=== PATIENT | female | born 1985 | race Caucasian/White ===

== ENCOUNTER 2019-05-15 10:04 | Emergency (ER) | payer MEDICAID ==
[~2019-05-15] VITALS: Ht 152.4 cm; Wt 68.0 kg
[2019-05-15 10:07] VITALS: BP 113/64
--- NOTE | 2019-05-15 10:12 | NUR ---
PT TO BED 12 WITH LIMP
--- NOTE | 2019-05-15 10:18 | NUR ---
33 Y/O FEMALE C/O RT FOOT AND ANKLE PAIN S/P SPEAKER FELL ON FOOT YESTERDAY. PT STATES INCREASED PAIN W/ AMBULATION. 8/10 SHARP PAIN AT THIS TIME. +BRUISING AND SWELLING TO RT BIG TOE. CAP REFILL <3 SEC. SKIN WARM AND DRY TO THE TOUCH. LMP 12/15. PT STATE TYLENOL TAKEN AT 0600 WITH NO PAIN RELIEF. RR EVEN AND UNLABORED. PT POSITIONED FOR COMFORT. VSS. MEDHX: DENIES ALLERGIES: NKA
--- NOTE | 2019-05-15 10:21 | NUR ---
XRAY AT BEDSIDE
--- NOTE | 2019-05-15 10:59 | NUR ---
DR CHEW AT BEDSIDE EXAMINING PT.
[2019-05-15] MEDS ORDERED: IBUPROFEN 800 MG TAB PO ONE (11:20)
--- NOTE | 2019-05-15 11:29 | NUR ---
PLACED ORTHO SHOE ON PT'S RIGHT FOOT
--- NOTE | 2019-05-15 11:31 | NUR ---
ORTHO SHOE PLACED ON PTS RT FOOT BY CONRAD ECHAVARRIA. PT EDUCATED ON USE OF BOOT. +CMS AFTER PLACEMENT.
[2019-05-15 11:35] VITALS: BP 113/64
--- NOTE | 2019-05-15 11:35 | NUR ---
Patient discharged with v/s stable. Written and verbal after care instructions given and explained. Patient alert, oriented and verbalized understanding of instructions. Ambulatory with steady gait. All questions addressed prior to discharge. ID band removed. Patient advised to follow up with PMD. Rx of NORCO AND IBURPROFEN given. Patient educated on indication of medication including possible reaction and side effects. Opportunity to ask questions provided and answered. PT PLACED IN ORTHO SHOE
== END 2019-05-15 11:35 | disposition home or self-care (01) ==
LOC: MED 10:04
DX: S92.421A Displaced fracture of distal phalanx of right great toe, initial encounter for closed fracture (principal); W20.8XXA Other cause of strike by thrown, projected or falling object, initial encounter; Y93.89 Activity, other specified; Y92.89 Other specified places as the place of occurrence of the external cause; Y99.8 Other external cause status
CPT/HCPCS: 73610; 73630; 99283; Q0092

== ENCOUNTER 2020-10-20 08:55 | Emergency (ER) | payer MEDICAID ==
[~2020-10-20] VITALS: Ht 152.4 cm; Wt 72.6 kg
--- NOTE | 2020-10-20 09:00 | NUR ---
Ambulated to bed 6
[2020-10-20 09:03] VITALS: BP 108/57
--- NOTE | 2020-10-20 09:10 | NUR ---
PATIENT AMBULATED TO RESTROOM FOR COLLECTION OF URINE
--- NOTE | 2020-10-20 09:12 | NUR ---
34/F presents to ED with c/o left lower back pain. Patient states she has had worsening constant 8/10 sharp left lower back pain for four days. Patient states yesterday she went to get a massage in hopes it would aid the back pain but states she believes it worsened the pain. Patient states she was unable to sleep due to the pain, states she has been taking Tylenol with no relief. Patient able to ambulate with no assistance, denies abdominal pain, denies dysuria or hematuria.
[2020-10-20] MEDS ORDERED: KETOROLAC 60 MG/2 ML VIAL IM ONE (09:45)
--- NOTE | 2020-10-20 10:09 | NUR ---
Labs drawn and walked to lab
[2020-10-20 10:31] LABS: BASOPHILS # (AUTO) 0.1 K/uL (0.00-0.22); BASOPHILS % (AUTO) 2.2 % (0.0-2.0); EOSINOPHILS # (AUTO) 0.1 K/uL (0-0.4); EOSINOPHILS % (AUTO) 2.6 % (0.0-4.0); HEMATOCRIT 39.2 % (36-48); HEMOGLOBIN 13.7 g/dL (12.0-16.0); LYMPHOCYTES # (AUTO) 1.5 K/uL (2.5-16.5); LYMPHOCYTES % (AUTO) 27.5 % (20.5-51.1); MEAN CORPUSCULAR HEMOGLOBIN 32 pg (27-31); MEAN CORPUSCULAR HGB CONC 35 g/dL (33-37); MEAN CORPUSCULAR VOLUME 90.1 fL (80-94); MONOCYTES # (AUTO) 0.3 K/uL (0.8-1.0); MONOCYTES % (AUTO) 5.4 % (1.7-9.3); NEUTROPHILS # (AUTO) 3.3 K/uL (1.8-7.7); NEUTROPHILS % (AUTO) 62.3 % (42.2-75.2); PLATELET COUNT (AUTO) 146 K/uL (140-450); RED BLOOD CELL COUNT(AUTO) 4.36 MIL/uL (4.20-5.40); RED CELL DISTRIBUTION WIDTH 13.6 % (11.6-13.7); WHITE BLOOD COUNT (AUTO) 5.4 K/uL (4.8-10.8)
[2020-10-20 11:08] LABS: ANION GAP 15.3 (8-16); CARBON DIOXIDE 25.7 mmol/L (21-32); CREATININE 0.9 mg/dL (0.6-1.3)
[2020-10-20 11:23] LABS: ALBUMIN 4.3 g/dL (3.4-5.0); TOTAL BILIRUBIN 0.5 mg/dL (0.0-1.0)
[2020-10-20] MEDS ORDERED: NAPR-1704 PO (12:20)
[2020-10-20] MEDS ORDERED: METF500T PO (12:20)
[2020-10-20 12:31] VITALS: BP 113/64
--- NOTE | 2020-10-20 12:31 | NUR ---
Patient discharged with v/s stable. Written and verbal after care instructions given and explained. Patient alert, oriented and verbalized understanding of instructions. Ambulatory with steady gait. All questions addressed prior to discharge. ID band removed. Patient advised to follow up with PMD. Rx of METFORMIN AND NAPROSYN given. Patient educated on indication of medication including possible reaction and side effects. Opportunity to ask questions provided and answered.
== END 2020-10-20 12:31 | disposition home or self-care (01) ==
LOC: MED 08:55
DX: E11.65 Type 2 diabetes mellitus with hyperglycemia (principal); M54.5 Low back pain
CPT/HCPCS: 36415; 80053; 81002; 81025; 82948; 83036; 85025; 96372; 99283; J1885

== ENCOUNTER 2022-08-28 10:36 | Emergency (ER) | payer MEDICAID ==
[~2022-08-28] VITALS: Ht 152.4 cm; Wt 65.8 kg
[~2022-08-28 10:36] MED LIST: METF-346 PO; NAPR-1704 PO
[2022-08-28 10:42] VITALS: BP 100/67
--- NOTE | 2022-08-28 10:50 | NUR ---
AMBULATED TO BED 12
--- NOTE | 2022-08-28 10:59 | NUR ---
ASSUMED PATIENT CARE. NURSING ASSESSMENT COMPLETED.
[2022-08-28 11:08] LABS: APPEARANCE,URINE CLEAR (CLEAR); BILIRUBIN,URINE NEGATIVE (NEGATIVE); BLOOD, URINE NEGATIVE (NEGATIVE); COLOR,URINE YELLOW (YELLOW); LEUKOCYTE ESTERASE ,URINE NEGATIVE (NEGATIVE); NITRITE, URINE NEGATIVE (NEGATIVE); UGLUCOSE NEGATIVE (NEGATIVE)
[2022-08-28] MEDS ORDERED: IBUP-2213 PO (11:26)
[2022-08-28] MEDS ORDERED: LOPE-289 PO (11:26)
[2022-08-28] MEDS ORDERED: ONDA8TAB87 PO (11:26)
[2022-08-28] MEDS ORDERED: CIPR500T4 PO (11:26)
--- NOTE | 2022-08-28 11:51 | NUR ---
Patient discharged with v/s stable. Written and verbal after care instructions FOR N/V/D AND ABD PAIN given and explained. Patient alert, oriented and verbalized understanding of instructions. Ambulatory with steady gait. All questions addressed prior to discharge. ID band removed. Patient advised to follow up with PMD. Rx of CIPRO, IBUPROFEN, IMODIUM AND ZOFRAN given. Opportunity to ask questions provided and answered.
== END 2022-08-28 11:51 | disposition home or self-care (01) ==
LOC: MED 10:36
DX: R10.13 Epigastric pain (principal); R11.2 Nausea with vomiting, unspecified; R19.7 Diarrhea, unspecified
CPT/HCPCS: 81003; 99283

== ENCOUNTER 2022-10-26 10:03 | Emergency (ER) | payer MEDICAID ==
[~2022-10-26] VITALS: Ht 152.4 cm; Wt 68.0 kg
[~2022-10-26 10:03] MED LIST changes: +CIPR500T4 PO; +IBUP-2213 PO; +LOPE-289 PO; +ONDA8TAB87 PO
[2022-10-26 10:10] VITALS: BP 109/64
[2022-10-26] MEDS ORDERED: KETOROLAC 60 MG/2 ML VIAL IM ONE (10:45)
[2022-10-26] MEDS ORDERED: PROCHLORPERAZINE 10 MG/2 ML VIAL IM ONE (10:45)
[2022-10-26 10:54] LABS: BASOPHILS % (AUTO) 0.5 % (0.0-2.0); EOSINOPHILS # (AUTO) 0.1 K/uL (0-0.4); EOSINOPHILS % (AUTO) 1.6 % (0.0-4.0); HEMATOCRIT 37.5 % (36-48); LYMPHOCYTES # (AUTO) 1.7 K/uL (2.5-16.5); MEAN CORPUSCULAR HEMOGLOBIN 31 pg (27-31); MEAN CORPUSCULAR HGB CONC 35 g/dL (33-37); MEAN CORPUSCULAR VOLUME 89.6 fL (80-94); MONOCYTES # (AUTO) 0.4 K/uL (0.8-1.0); MONOCYTES % (AUTO) 5.9 % (1.7-9.3); NEUTROPHILS # (AUTO) 4.1 K/uL (1.8-7.7); PLATELET COUNT (AUTO) 141 K/uL (140-450); RED BLOOD CELL COUNT(AUTO) 4.18 MIL/uL (4.20-5.40); RED CELL DISTRIBUTION WIDTH 13.2 % (11.6-13.7); WHITE BLOOD COUNT (AUTO) 6.3 K/uL (4.8-10.8)
[2022-10-26 11:20] LABS: ALBUMIN 4.1 g/dL (3.4-5.0); ANION GAP 12.6 (8-16); CARBON DIOXIDE 27.4 mmol/L (21-32); CREATININE 0.7 mg/dL (0.6-1.3); TOTAL BILIRUBIN 0.6 mg/dL (0.0-1.0)
--- NOTE | 2022-10-26 12:10 | NUR ---
36 Y/O FEMALE BIB SELF, C/O WORSENING ABD PAIN AND NAUSEA FOR 3 DAYS. PT DENIES VOMITING, DIARRHEA, CONSTIPATION AND FEVERS. PMH: DENIES NKA
[2022-10-26] MEDS ORDERED: TRAM-748 PO (12:12)
[2022-10-26 12:25] VITALS: BP 109/64
--- NOTE | 2022-10-26 12:25 | NUR ---
Patient discharged with v/s stable. Written and verbal after care instructions given and explained. Patient alert, oriented and verbalized understanding of instructions. Ambulatory with steady gait. All questions addressed prior to discharge. ID band removed. Patient advised to follow up with PMD. Rx of TRAMADOL (SENT) given. Patient educated on indication of medication including possible reaction and side effects. Opportunity to ask questions provided and answered.
== END 2022-10-26 12:25 | disposition home or self-care (01) ==
LOC: MED 10:03
DX: R10.13 Epigastric pain (principal); R51.9 Headache, unspecified; R11.0 Nausea; Z79.899 Other long term (current) drug therapy
CPT/HCPCS: 36415; 80053; 81025; 83690; 85025; 96372; 99284; J0780; J1885

== ENCOUNTER 2023-08-22 09:30 | Emergency (ER) | payer MEDICAID ==
[~2023-08-22] VITALS: Ht 152.4 cm; Wt 72.6 kg
[~2023-08-22 09:30] MED LIST changes: +TRAM-748 PO
[2023-08-22 09:47] VITALS: BP 107/63; PULSE 63; RESP 20; TEMP 98.3; O2SAT 100
[2023-08-22 10:56] VITALS: BP 107/57; PULSE 63; RESP 20; TEMP 98.3; O2SAT 100
[2023-08-22 11:20] LABS: BILIRUBIN,URINE NEGATIVE (NEGATIVE); BLOOD, URINE 3+ (NEGATIVE); COLOR,URINE YELLOW (YELLOW); LEUKOCYTE ESTERASE ,URINE NEGATIVE (NEGATIVE); PROTEIN,URINE TRACE (NEGATIVE); UGLUCOSE TRACE (NEGATIVE); UROBILINOGEN,URINE 0.2 EU/dL (0.2 - 1)
[2023-08-22 11:20] LABS: BASOPHILS % (AUTO) 0.3 % (0.0-2.0); EOSINOPHILS # (AUTO) 0.1 K/uL (0-0.4); EOSINOPHILS % (AUTO) 1.2 % (0.0-4.0); HEMATOCRIT 37.1 % (36-48); HEMOGLOBIN 12.9 g/dL (12.0-16.0); LYMPHOCYTES # (AUTO) 1.7 K/uL (2.5-16.5); LYMPHOCYTES % (AUTO) 22.9 % (20.5-51.1); MEAN CORPUSCULAR HEMOGLOBIN 31 pg (27-31); MEAN CORPUSCULAR HGB CONC 35 g/dL (33-37); MEAN CORPUSCULAR VOLUME 88.9 fL (80-94); MONOCYTES # (AUTO) 0.3 K/uL (0.8-1.0); MONOCYTES % (AUTO) 4.8 % (1.7-9.3); NEUTROPHILS # (AUTO) 5.2 K/uL (1.8-7.7); NEUTROPHILS % (AUTO) 70.8 % (42.2-75.2); PLATELET COUNT (AUTO) 148 K/uL (140-450); RED BLOOD CELL COUNT(AUTO) 4.18 MIL/uL (4.20-5.40); RED CELL DISTRIBUTION WIDTH 14.3 % (11.6-13.7); WHITE BLOOD COUNT (AUTO) 7.3 K/uL (4.8-10.8)
[2023-08-22 11:29] LABS: SQUAMOUS EPITHELIAL CELL,UR 0-3 (FEW) /LPF (0-3 (FEW)); WBC,URINE 0-5 /HPF (0-5)
[2023-08-22 11:31] LABS: APPEARANCE,URINE SLIGHTLY HAZY (CLEAR); BACTERIA,URINE 1+ /HPF (None Seen); NITRITE, URINE POSITIVE (NEGATIVE)
[2023-08-22] MEDS ORDERED: CEPH-588 PO (13:55)
== END 2023-08-22 14:37 | disposition home or self-care (01) ==
LOC: MED 09:30
DX: O20.0 Threatened abortion (principal); O23.41 Unspecified infection of urinary tract in pregnancy, first trimester; Z79.1 Long term (current) use of non-steroidal anti-inflammatories (NSAID); Z79.899 Other long term (current) drug therapy; Z3A.01 Less than 8 weeks gestation of pregnancy
CPT/HCPCS: 36415; 76817; 81001; 84702; 85025; 86900; 86901; 99284; Q0092

== ENCOUNTER 2023-08-25 10:38 | Emergency (ER) | payer MEDICAID ==
[~2023-08-25] VITALS: Ht 157.5 cm; Wt 72.6 kg
[~2023-08-25 10:38] MED LIST changes: +CEPH-588 PO
[2023-08-25 10:50] VITALS: BP 116/70; PULSE 71; RESP 20; TEMP 97.3; O2SAT 97
[2023-08-25 11:26] LABS: BASOPHILS % (AUTO) 0.3 % (0.0-2.0); EOSINOPHILS # (AUTO) 0.1 K/uL (0-0.4); EOSINOPHILS % (AUTO) 1.6 % (0.0-4.0); HEMATOCRIT 36.6 % (36-48); HEMOGLOBIN 12.9 g/dL (12.0-16.0); LYMPHOCYTES # (AUTO) 1.8 K/uL (2.5-16.5); LYMPHOCYTES % (AUTO) 22.9 % (20.5-51.1); MEAN CORPUSCULAR HEMOGLOBIN 31 pg (27-31); MEAN CORPUSCULAR HGB CONC 35 g/dL (33-37); MEAN CORPUSCULAR VOLUME 89.1 fL (80-94); MONOCYTES # (AUTO) 0.4 K/uL (0.8-1.0); MONOCYTES % (AUTO) 4.8 % (1.7-9.3); NEUTROPHILS # (AUTO) 5.5 K/uL (1.8-7.7); NEUTROPHILS % (AUTO) 70.4 % (42.2-75.2); PLATELET COUNT (AUTO) 142 K/uL (140-450); RED BLOOD CELL COUNT(AUTO) 4.11 MIL/uL (4.20-5.40); RED CELL DISTRIBUTION WIDTH 13.7 % (11.6-13.7); WHITE BLOOD COUNT (AUTO) 7.9 K/uL (4.8-10.8)
[2023-08-25 11:27] LABS: APPEARANCE,URINE CLOUDY (CLEAR); BILIRUBIN,URINE NEGATIVE (NEGATIVE); BLOOD, URINE 3+ (NEGATIVE); COLOR,URINE RED (YELLOW); LEUKOCYTE ESTERASE ,URINE NEGATIVE (NEGATIVE); NITRITE, URINE NEGATIVE (NEGATIVE); PH,URINE 5.5 (5.0-9.0); PROTEIN,URINE 1+ (NEGATIVE); UGLUCOSE 3+ (NEGATIVE); UROBILINOGEN,URINE 0.2 EU/dL (0.2 - 1)
[2023-08-25 11:33] VITALS: O2SAT 97
[2023-08-25 11:36] LABS: ANION GAP 15.7 (8-16); CALCIUM 8.8 mg/dL (8.5-10.1); CREATININE 0.7 mg/dL (0.6-1.3); POTASSIUM 3.7 mmol/L (3.5-5.1)
[2023-08-25 11:38] LABS: BACTERIA,URINE 1+ /HPF (None Seen); RBC,URINE >20 (MANY) /HPF (0-5); SQUAMOUS EPITHELIAL CELL,UR 0-3 (FEW) /LPF (0-3 (FEW))
[2023-08-25 13:35] VITALS: BP 132/80; PULSE 74; RESP 18; TEMP 97.3; O2SAT 97; O2SAT 98
[2023-08-25] MEDS: NACL 0.9% 1,000 ML IV ONE (13:46)
[2023-08-30] MEDS ORDERED: CEFP100T18 PO (15:08)
== END 2023-08-25 13:46 | disposition home or self-care (01) ==
LOC: MED 10:38
DX: O20.0 Threatened abortion (principal); O23.41 Unspecified infection of urinary tract in pregnancy, first trimester; Z3A.01 Less than 8 weeks gestation of pregnancy; Z79.899 Other long term (current) drug therapy
CPT/HCPCS: 36415; 76801; 80048; 81001; 81025; 82948; 84702; 85025; 86886; 86900; 86901; 87086; 87186; 99284; Q0092